=== PATIENT | female | born 1970 | race Caucasian/White ===

== ENCOUNTER 2020-04-13 08:45 | Inpatient (IN) ==
--- NOTE | 2019-12-03 07:18 | PAT Medication Instructions ---
Medication Instructions Date of Service December 03, 2019 Home Medications biotin 1 mg PO DAILY diphenhydramine HCl [Benadryl] 25 mg PO TID PRN glucos sul [id number] [Glucosamine Chondroitin] 1 cap PO DAILY ibuprofen 800 mg PO TID potassium gluconate 600 mg PO DAILY propranolol 80 mg PO BID ASK your surgeon for instructions ibuprofen 800 mg PO TID STOP taking 2 weeks before surgery (or as soon as possible if surgery is within 2 weeks) glucos sul [id number]-Mn [Glucosamine Chondroitin] 1 cap PO DAILY DO NOT take the morning of surgery biotin 1 mg PO DAILY diphenhydramine HCl [Benadryl] 25 mg PO TID PRN potassium gluconate 600 mg PO DAILY Take morning of surgery With a small sip of water, OTHERWISE NOTHING TO EAT OR DRINK AFTER MIDNIGHT: propranolol 80 mg PO BID Take evening before surgery diphenhydramine HCl [Benadryl] 25 mg PO TID PRN (if needed) propranolol 80 mg PO BID Other Notes If you have any questions please call us at [phone] or [phone] or [phone] or [phone]
--- NOTE | 2020-03-22 10:38 | Anesthesiology Consultation ---
Date of Service March 22, 2020 Assessment & Plan (1) Encounter for pre-operative examination: Per PAT assessment on 03/22: Travel screen- Lives in [place]. 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 No current COVID-19 related symptoms. Surgeon arranging preop COVID testing. Awaiting results. Chart Review Chart Review: Acceptable Risk for Surgery (pending COVID testing) and Patient seen in Pre Admission Testing Teaching & Discussion Pre-Anesthesia Teaching/Discussion Notes: Instructed NPO after midnight before s urgery,except medications with 15 cc of water. Medication instructions provided according to the PAT guidelines. History Surgery Operation Date: 04/13/20 07:00 Proposed Procedures p Right Total Knee Arthroplasty - Gregory Toure MD Height/Weight Height: 5 ft 10 in Weight: 120.6 kg Allergies Allergy/AdvReac Type Severity Reaction Status Date / Time latex Allergy Mild skin Verified 03/22/20 11:00 redness adhesive tape AdvReac Mild skin welts Verified 03/22/20 11:00 Medications Home Medications Medication Instructions Recorded Confirmed Last Taken biotin 1 mg PO DAILY 11/27/19 03/16/20 Unknown diphenhydramine HCl [Benadryl] 25 mg PO TID PRN 11/27/19 03/16/20 Unknown glucos sul [id number]-C-Mn 1 cap PO DAILY 11/27/19 03/16/20 Unknown [Glucosamine Chondroitin] ibuprofen 800 mg PO TID 11/27/19 03/16/20 Unknown potassium gluconate 600 mg PO DAILY 11/27/19 03/16/20 Unknown propranolol 80 mg PO BID 11/27/19 03/16/20 Unknown Past Medical History Medical History Benign essential tremor controlled on propranolol History of anxiety History of colitis Obesity Osteoarthritis Scoliosis mild Exercise / Class Metabolic Activity II 4-5 Yardwork/Stairs/Walk up hill Past Family History Family History Grandmother (Paternal) Family history of esophageal cancer Past Surgical History Surgical History History of arthroscopy RT KNEE History of bladder surgery BLADDER TACK History of esophagogastroduodenoscopy (EGD) History of gynecologic surgery D&E History of hysterectomy [place] teeth removed Past Anesthesia History No Hx of Anesthesia Complications and No Family Hx of Anesthesia Complications History of PONV No Hx of PONV and No Hx of Motion Sickness Social History Smoking Status: Never smoker Do You Dip or Chew Tobacco: No Hx Alcohol Use: Yes Alcohol type: beer alcohol intake frequency: a few times a week Hx Substance Use: No Review of Systems Patient denies chest pain, shortness of breath, dyspnea on exertion, fever, chills, cough, wheezing, palpitations. Physical Exam Vital Signs VITALS BP 101/61 P 64 TEMP 98.2 SP02 98%RA RESP 16 PHYSICAL Full neck and c-spine range of motion. Full TMJ range of motion. TMD 3 finger breaths Mallampati Score 1 Dentition: missing sides/molars Lungs: clear throughout to auscultation Cardiac: regular rate and rhythm, no murmurs noted Spine: normal Carotid arteries: negative bruit Extremities: no edema Testing Laboratory Results 03/22/20 11:00 03/22/20 11:00 PT 10.3 Seconds (9.0-12.0) 03/22/20 11:00 INR 1.0 (0.9-1.1) 03/22/20 11:00 APTT 28.0 Seconds (21.0-31.0) 03/22/20 11:00 Hemoglobin A1c 5.4 % (4.5-5.6) 03/22/20 11:00 Urine Color Yellow 03/22/20 11:00 Urine Appearance Clear (Clear) 03/22/20 11:00 Urine pH 5.0 (4.5-7.5) 03/22/20 11:00 Ur Specific [place] 1.012 (1.000-1.030) 03/22/20 11:00 Urine Protein Negative (Negative) 03/22/20 11:00 Urine Glucose (UA) Negative (Negative) 03/22/20 11:00 Urine Ketones Negative (Negative) 03/22/20 11:00 Urine Nitrite Negative (Negative) 03/22/20 11:00 Ur Leukocyte Esterase Negative (Negative) 03/22/20 11:00 Blood Type A Negative 03/22/20 11:00 Antibody Screen NEGATIVE 03/22/20 11:00 Electrocardiogram Date: 03/22/20 Findings: + NSR @ (62) Chest X-Ray Date: 03/22/20 Findings: + NAD
--- NOTE | 2020-03-22 11:28 | XRay Report ---
XR chest Pre-admission PA/Lat HISTORY: 49 years-old Female pat preoperative exam. No acute chest complaints COMPARISON: None TECHNIQUE: PA and lateral views of the chest FINDINGS: Cardiomediastinal and hilar silhouettes are within normal limits. No pneumothorax, pleural effusion, airspace consolidation or overt pulmonary edema. Degenerative changes of the shoulders and spine. Bon es appear grossly intact. IMPRESSION: No acute process. ACT 112: Negative or not required by law. The above report was generated using voice recognition software. It may contain grammatical, syntax o r spelling errors. Electronically signed by: Manny Castellano M.D. 03/22/2020 11:26 AM
[2020-03-22 13:11] LABS: Basophils # (auto) 0.02 K/uL (0-0.2); Basophils % (auto) 0.3 %; Eosinophils # (auto) 0.06 K/uL (0-0.5); Hemoglobin 13.9 g/dL (12.0-16.0); Lymphocytes # (auto) 2.07 K/uL (1.2-3.4); Lymphocytes % (auto) 34.8 %; Mean Corpuscular Hgb Conc 33.9 g/dL (32-36); Mean Corpuscular Volume 91.3 fL (80-100); Mean Platelet Volume 11.5 fL (7.4-10.4); Monocytes # (auto) 0.43 K/uL (0.11-0.59); Monocytes % (auto) 7.2 %; Neutrophils # (auto) 3.37 K/uL (1.4-6.5); Neutrophils % (auto) 56.7 %; Platelet Count 235 K/uL (130-400); RDW Coefficient of Variation 13.4 % (11.5-14.5); RDW Standard Deviation 44.5 fL (36.4-46.3); Red Blood Count 4.49 M/uL (4.2-5.4); White Blood Count 5.95 K/uL (4.8-10.8)
[2020-03-22 13:15] LABS: Appearance Urine Clear (Clear); Bilirubin Urine Negative (Negative); Blood Urine Negative (Negative); Color Urine Yellow; Glucose Urine UA Negative (Negative); Ketones Urine Negative (Negative); Leukocyte Esterase Urine Negative (Negative); Nitrite Urine Negative (Negative); Protein Urine Negative (Negative); Specific Gravity Urine 1.012 (1.000-1.030); Urobilinogen Urine Negative (Negative)
[2020-03-22 13:33] LABS: Prothrombin Time 10.3 Seconds (9.0-12.0)
[2020-03-22 13:36] LABS: Estimated Average Glucose 108 mg/dl; Hemoglobin A1C 5.4 % (4.5-5.6)
--- NOTE | 2020-03-22 13:43 | Electrocardiogram Report ---
Test Reason : Blood Pressure : / mmHG Vent. Rate : 062 BPM Atrial Rate : 062 BPM P-R Int : 182 ms QRS Dur : 102 ms QT Int : 440 ms P-R-T Axes : 049 065 021 degrees QTc Int : 446 ms Normal sinus rhythm Normal ECG No previous ECGs available Confirmed by Mauri Durand ([id number]) on 03/22/2020 1:42:41 PM Referred By: Gregory Toure Confirmed By:Mauri Durand
[2020-03-22 14:03] LABS: Albumin Level 3.7 gm/dl (3.4-5.0); BUN Creatinine Ratio 16.7 (10-20); Calcium 9.2 mg/dl (8.5-10.1); Creatinine Clr Calc Pharmacy 97.9 ml/min; Est GFR (African American) 78.9; Est GFR (Non-African American) 68.1; Potassium 4.2 mmol/L (3.5-5.1)
--- NOTE | 2020-04-12 19:21 | History and Physical Report ---
DATE OF ADMISSION: 04/13/2020 CHIEF COMPLAINT: Chronic right knee pain. HISTORY OF PRESENT ILLNESS: This is a 49-year-old female patient of Dr. Toure'george complaining of chronic right knee pain, longstanding, now progressively getting worse. The patient has failed conservative treatment including intraarticular injections, viscosupplementation, CBD oil, tramadol, home exercise program, the use of a sleeve and a brace. The patient has increased pain with weightbearing activities and her pain does interfere with her activities of daily living. The patient has been diagnosed with end-stage osteoarthritis per clinical and radiographic exams. The patient wished to proceed with a right total knee arthroplasty. PAST MEDICAL HISTORY: Essential tremor, osteoarthritis, obesity. SOCIAL HISTORY: Nonsmoker, occasional drinker. FAMILY HISTORY: Noncontributory. REVIEW OF SYSTEMS: Chronic right knee pain and instability. Otherwise, denies any shortness of breath, chest pain, nausea, vomiting or any other joint complaints. PAST SURGICAL HISTORY: [place] teeth, D and E, cystocele, hysterectomy, right knee arthroscopy. MEDICATIONS: 1. Diphenhydramine 25 mg 2 tablets every 4-6 hours as needed. 2. Tylenol Arthritis as needed. 3. Aleve as needed. 4. Biotin 10,000 mcg daily. 5. Ultram 50 mg as needed. 6. Ibuprofen as needed. 7. Propranolol 50 mg b.i.d. ALLERGIES: ADHESIVE AND LATEX. PHYSICAL EXAMINATION: GENERAL: Well-developed, well-nourished 49-year-old female in no acute distress. She is alert and oriented x3 and pleasant. HEENT: Normocephalic, atraumatic. Extraocular motions are intact. Pupils are equal and reactive to light. HEART: Regular rate and rhythm, no murmurs. LUNGS: Clear. ABDOMEN: Soft, nontender, bowel sounds present. EXTREMITIES: Right knee valgus deformity, positive effusion. Lateral joint line tenderness. Range of motion 0-110. Positive crepitation, 5/5 strength. Neurologically and neurovascularly, she is intact in her right lower extremity. DIAGNOSES: Right knee end-stage osteoarthritis, essential tremor, obesity. PLAN: The patient was advised of her diagnosis. Indications, risks, benefits, postop course have all been reviewed. The patient wished to proceed with a right total knee arthroplasty. Necessary consent forms, preoperative testing and clearances will be obtained.
[~2020-04-13 08:45] MED LIST: ACETAMINOPHEN 500 MG TAB PO SCH; BUPIVACAINE 0.25% 30 ML VIAL ONE; BUPIVACAINE 0.5 % 5 MG/1 ML PF 10ML VIAL ONE; CEFAZOLIN 3000MG 72.5 ML IV SCH; CeleBREX 200 MG CAP PO SCH; FAMOTIDINE 20 MG TAB PO SCH; GABAPENTIN 900 MG DOSE PO SCH; LR 500ML BOLUS, THEN 15ML/HR IV SCH; METOCLOPRAMIDE HCL 10 MG TABLET PO SCH; ROPIVACAINE 0.5% HCL/PF 150 MG, BUPIVACAINE 0.5% MPF 30 ML, EPINEPHrine 30MG/30ML (OR U... INFIL SCH; TRANEXAMIC ACID 1,000 MG **IV Intra-op IV SCH; TRANEXAMIC ACID 1,000 MG **IV Pre-op IV SCH; dexAMETHasone 4 MG TAB PO SCH
--- NOTE | 2020-04-13 09:20 | History & Physical Bridge Note ---
Date of Service April 13, 2020 History & Physical Bridge Note I have examined the patient, reviewed the History & Physical and in the interval since the performance of the History & Physical I have noted the following changes of clinical significance: no changes noted
[2020-04-13] MEDS ORDERED: LIDOCAINE HCL 2% 2 ML VIAL/AMP(20MG/ML) INFIL ONE (09:28)
[2020-04-13] MEDS ORDERED: PROPOFOL IV EMULSION 10 MG/ML 20 ML VIAL IV ONE ×3 (09:28→13:21)
[2020-04-13] MEDS ORDERED: MIDAZOLAM HCL 1 MG/ML 2ML VIAL ONE ×2 (09:28)
[2020-04-13] MEDS ORDERED: ONDANSETRON INJ 2 MG/ML 2 ML VIAL IV PRN ×2 (09:48→14:35)
[2020-04-13] MEDS ORDERED: BACITRACIN INJ 50,000 UNIT VIAL ONE (09:53)
[2020-04-13] MEDS ORDERED: ORTHO JOINT ANESTHETIC ONE (09:53)
--- NOTE | 2020-04-13 12:50 | Operative Report ---
Post Operative Report Pre & Post Diagnosis Operation Date: 04/13/20 11:10 Pre-Op Diagnosis: RIGHT KNEE OSTEOARTHRITIS, obesity BMI 37.8 Post-Op Diagnosis: RIGHT KNEE OSTEOARTHRITIS, obesity BMI 37.8 I identified the patient and participated in the time-out.: Yes Procedure Operation Date: 04/13/20 11:10 Actual Procedures p Right Total Knee Arthroplasty(Right), lateral release- Gregory Toure MD Surgeon Gregory Toure MD Tube Mill Operator MARQUIS Macario Estimated Blood Loss 15 Findings Consistent with Post-Op Diagnosis Specimens Bone cuts Drains 2 Hemovac Anesthesia Type MAC Spinal Regional Complications none Disposition Accompanied Patient To Recovery: No Disposition: Recovery Room Indications 49-year-old female with chronic progressive osteoarthritis in her right knee lateral compartment and patellofemoral joint. Patient is [id number] lateral compartment weightbearing films. Patient's obesity BMI 37.8 Description of Procedure Patient taken to the operating room placed supine on the operating table and anesthetized under spinal MAC regional anesthesia. Exam under anesthesia demonstrated 0 through 120 degrees range of motion mild MCL laxity and tight lateral compartment. A pneumatic tourniquet was placed about the obese thigh of the right lower extremity. The right lower extremity was prepped and draped in usual fashion. Leg was elevated exsanguinated with an Esmarch bandage and the pneumatic was raised to 350 mm mercury. An anterior incision was made across the right knee. The skin was incised longitudinally subcutaneous flaps were elevated and an incision was made through the medial retinaculum extending up into the mid third of the quadriceps tendon and extended down to the medial tibial tubercle. Intra-articular findings demonstrated lateral compartment and patellofemoral OA. Grade 3 OA patella grade 3-4 OA central trochlear groove. Lateral compartment grade 4 [id number]. Hypoplastic lateral femoral condyle. The knee was exposed by excising the infrapatellar fat pad, excising the meniscal remnants and anterior cruciate ligament. Any inflamed synovial tissue was resected. The fat pad over the anterior femur was resected for placement of the component in that area. The lateral synovial bands were release. Appropriate releases were performed to balance ligaments. The femur was exposed. The custom femoral cutting block was pinned in position. The distal femoral cutting block was applied. The distal femoral cut was made with the oscillating saw. The size 10 4-in-1 cutting block was placed. The anterior and posterior chamfer cuts were made. The knee was extended and a subperiosteal peel lateral release was performed around the patella. The patella width was measured and width was reproduced using freehand cut technique. The 32 x 8.5 millimeter symmetrical patella was used. 3 drill holes are made for the pegs. The tibia was exposed. A custom tibial cutting block was positioned and drill holes were made for the cutting guide. Cutting guide was placed and the proximal cut was made with the oscillating saw. All osteophytes were resected. The lamina labor relations supervisor was used to assess ligamentous balance and the ligaments were balanced in extension and flexion. This required lateral capsule release of the tibia IT band release off the tibia piecrust IT band lengthening release popliteus tendon. The tibia was reexposed and measured for a size E tibial component. This was externally rotated in line with the tibial tubercle and the fixation pins were drilled. The proximal tibia was fashioned with the drill and punch. The size 10 femoral trial was inserted. The trial MC inserts were used. The 11 MC mm insert gave balanced ligaments through full range of motion. The patella tracked with some medial liftoff so I performed a lateral release leaving the synovium intact and patella then tracked centrally. the trials were removed. The orthomix anesthetic cocktail was injected per protocol. The knee was then copiously irrigated with pulsatile lavage antibiotic solution with bacitracin. The final components were cemented with Simplex cement. The final components were 10 right narrow persona Toni [employer] CR femoral component, size E right tibial component, 11 mm MC tibial bearing polyethylene, 32 x 8.5 patella symmetrical. While the cement cured with the knee in full extension the Betadine soak was used per protocol. After the cement cured, the knee joint was copiously irrigated with antibiotic solution with bacitracin. 2 drains were brought out laterally and connected to a Hemovac. The quadriceps tendon and medial retinaculum were closed with interrupted [id number] #1 Vicryl sutures. The knee was taken through a full range of motion and repair was secure. The subcutaneous tissues were closed with 2-0 Vicryl sutures and skin was closed with arun. Sterile dressings were applied and the patient tolerated the procedure well. Bakari CHO my physician hair assistant, assisted in soft tissue retraction instrument management leg positioning the closure and will participate in the postoperative care of the patient. Was some increased difficulty due to obesity of the leg getting exposure during several portions of the procedure that did increase length of time the procedure and increased difficulty with procedure.. I attest to the content of the Intraoperative Record and any orders documented therein. Any exceptions are noted below.
--- NOTE | 2020-04-13 13:55 | XRay Report ---
RIGHT KNEE 2 VIEWS History: Right total knee arthroplasty. Degenerative arthritis. Postop. FINDINGS: The patient is status post a right total knee arthroplasty. The hardware is intact. No frac ture or dislocation. Skin arun and surgical drains are in place. IMPRESSION: Right total knee arthroplasty. No evidence for hardware complication. ACT 112: Negative or not required by law. Electronically signed by: French Orellana M.D. 04/13/2020 1:53 PM
[2020-04-13] MEDS ORDERED: MAGNESIUM HYDROXIDE SUSP 30 ML UDC PO PRN (14:30)
[2020-04-13] MEDS ORDERED: bisacodyL 10 MG SUPP PR PRN (14:31)
[2020-04-13] MEDS ORDERED: NALOXONE HCL 0.4 MG/1 ML VIAL/CARP IV PRN (14:35)
[2020-04-13] MEDS: SODIUM CHLORIDE 0.9% 1000ML 1,000 ML IV SCH ×2 (14:39→23:18)
--- NOTE | 2020-04-13 15:30 | Hospitalist Consultation ---
Date of Consultation April 13, 2020 Assessment & Plan (1) Status post right knee replacement: - POD#[address] Toure - activity and wound care orders as per ortho - pain control with bowel regimen - PT/OT - monitor H/H for acute blood loss anemia and transfuse blood products PRN - EBL 15 cc (2) Benign essential tremor: -Continue propanolol (3) DVT prophylaxis: -Aspirin 81 mg twice daily as per orthopedics Thank you for this consultation. We will follow the patient with you during their hospital stay. You can reach a member of the [facility] 25/03 via pager @ [phone]. Supervising Physician Co-Signing Physician Notes Pt seen and examined by me, care coordinated with JOSE E Khlail, please refer to her note above for further detail. Pt is a 49 y/o female with no significant pmh who is status post right total knee arthroplasty today. Postoperatively, the patient is doing well. She reports her pain is well controlled. No chest pain or shortness of breath. Denies abdominal pain and nausea. No lightheadedness or dizziness. Says her LE numbness is improving. She is able to move her toes w/o difficulty. Pt is currently laying in bed, in NAD. She is alert and oriented x3, answers questions appropriately. Lungs are clear to auscultation, no wheezing, rhonchi, crackles. Heart sounds regular. Abdomen soft, nontender, nondistended, + bowel sounds. Skin is warm, dry, well perfused. Moves upper extremities w/o difficulty. Surgical dressings applied, drain w/ serosang. fluid. Moves her toes w/o difficulty. Monitor VS. Monitor H&H for poss. blood loss anemia. Rosie Pritchett MD History of Present Illness Reason for Consultation: Postop medical management Requesting Physician: Dr. Toure Attending Physician: Gregory Toure MD History of Present Illness 49-year-old female with PMH essential tremor and other problems listed below who is status post right total knee arthroplasty today by Dr. Toure. Postoperatively, the patient is doing well. She reports her pain is well controlled. She reports some residual numbness to both the lower extremities. No chest pain or shortness of breath. Denies abdominal pain and nausea. No lightheadedness or dizziness. She has not voided some surgery. Allergies Allergy/AdvReac Type Severity Reaction Status Date / Time latex Allergy Mild skin Verified 04/13/20 09:12 redness adhesive tape AdvReac Mild skin welts Verified 04/13/20 09:12 Home Medications Home Medications Medication Instructions Recorded Confirmed Type biotin 1 mg PO DAILY 11/27/19 04/13/20 History diphenhydramine HCl [Benadryl] 25 mg PO TID PRN 11/27/19 04/13/20 History glucos sul [id number]-pst-nsskx-C-Mn 1 cap PO DAILY 11/27/19 04/13/20 History [Glucosamine Chondroitin] ibuprofen 800 mg PO TID 11/27/19 04/13/20 History potassium gluconate 600 mg PO DAILY 11/27/19 04/13/20 History propranolol 80 mg PO BID 11/27/19 04/13/20 History Patient History Medical History Benign essential tremor controlled on propranolol History of anxiety History of colitis Obesity Osteoarthritis Scoliosis mild Surgical History (Updated 04/13/20 @ 15:27 by JOSE E Khalil) History of arthroscopy RT KNEE History of bladder surgery BLADDER TACK History of esophagogastroduodenoscopy (EGD) History of gynecologic surgery D&E History of hysterectomy [place] teeth removed Family History Grandmother (Paternal) Family history of esophageal cancer Social History Smoking Status: Never smoker Second Hand Exposure: Yes ( A CHILD); Do You Dip or Chew Tobacco: No; Tobacco Cessation Education Requested by Patient: No Hx Alcohol Use: Yes Alcohol type: beer Hx Substance Use: No Preferred Language: Argentine [employer] Farmworker Required: No Beliefs That Will Affect Care: None Current Living Situation: Spouse Feels Safe at Home: Yes Safety Concerns: Feels Safe At This Time Review of Systems Review of Systems: ROS per HPI, all other systems reviewed and negative Physical Exam Constitutional: WD/WN, vitals as above Eyes: PERRL, conjunctivae normal, anicteric sclerae ENMT: external ear and nose normal, oropharynx normal Respiratory: normal respiratory effort, lungs clear to auscultation Cardiovascular: Rate/Rhythm: regular rate and regular rhythm Vessels: normal peripheral pulses Extremities: no edema Gastrointestinal (Abdomen): normal bowel sounds, soft, nontender, no hepatosplenomegaly Musculoskeletal: S/p right knee surgery, surgical dressing dry and intact, drain in place draining bloody drainage, BLLE remain numb, circulation intact Skin: no rashes, warm and dry Neurologic: PERRL, EOMI, accommodation nl, no face palsy, no dysarthria Psychiatric: A+Ox3, euthymic affect Results & Data Results & Data ([facility]) Vital Signs (Past 12 Hours) Vital Signs Temp Pulse Pulse Resp BP Pulse Ox 04/13/20 15:02 36.5 C 63 18 106/72 94 04/13/20 14:40 36.4 C L 67 17 121/73 94 04/13/20 14:05 36.6 C 66 16 101/70 95 04/13/20 13:50 36.8 C 64 16 118/67 95 04/13/20 13:40 61 16 111/74 95 04/13/20 13:30 71 16 109/65 97 04/13/20 13:20 67 16 109/61 98 04/13/20 13:14 37.1 C 70 16 102/59 L 96 04/13/20 09:16 36.6 C 62 20 139/82 96
--- NOTE | 2020-04-13 16:31 | Anesthesiology Progress Note ---
Date of Service April 13, 2020 Anesthesia Post Procedure Vital Signs Vital Signs: Temp Pulse Pulse Resp BP Pulse Ox 04/13/20 16:00 36.4 C L 62 18 104/70 95 04/13/20 15:02 36.5 C 63 18 106/72 94 04/13/20 14:40 36.4 C L 67 17 121/73 94 04/13/20 14:05 36.6 C 66 16 101/70 95 04/13/20 13:50 36.8 C 64 16 118/67 95 04/13/20 13:40 61 16 111/74 95 04/13/20 13:30 71 16 109/65 97 04/13/20 13:20 67 16 109/61 98 04/13/20 13:14 37.1 C 70 16 102/59 L 96 04/13/20 09:16 36.6 C 62 20 139/82 96 Transfer of Care Handoff Completed per policy Notes Mental Status: alert / awake / arousable and participated in evaluation Patient Amnestic to Procedure: Yes Nausea / Vomiting: adequately controlled Pain: adequately controlled Airway Patency, RR, SpO2: stable & adequate BP & HR: stable & adequate Hydration State: stable & adequate Neuraxial Anesthesia: was administered and sensory block is resolving Anesthetic Complications: no major complications apparent and Pt Satisfied with anesthetic care
[2020-04-13] MEDS: HYDROCODONE/ACETAMOPHEN 5/325MG TAB PO PRN (19:20)
[2020-04-13] MEDS: CEFAZOLIN 2000MG 2,000 MG/15 ML SYR IV SCH (19:20)
[2020-04-13] MEDS: ASPIRIN 81 MG ECTAB PO SCH (20:46)
[2020-04-13] MEDS: DOCUSATE SODIUM 100 MG CAP PO SCH (20:46)
[2020-04-13] MEDS: CeleBREX 200 MG CAP PO SCH (20:46)
[2020-04-13] MEDS: SENNA 8.6 MG TAB PO SCH (20:47)
[2020-04-13] MEDS ORDERED: PROPRANOLOL HCL 80 MG TAB PO SCH (21:00)
[2020-04-13] MEDS: HYDROmorphone INJ 0.5 MG/0.5 ML SYR IV PRN (22:15)
[2020-04-14] MEDS: CEFAZOLIN 2000MG 2,000 MG/15 ML SYR IV SCH (02:18)
[2020-04-14] MEDS: HYDROCODONE/ACETAMOPHEN 5/325MG TAB PO PRN ×3 (02:18→19:00)
[2020-04-14 05:52] LABS: Hematocrit (blood only) 35.2 % (37-47); Hemoglobin 12.1 g/dL (12.0-16.0); Mean Corpuscular Hemoglobin 30.6 pg (25-34); Mean Corpuscular Hgb Conc 34.4 g/dL (32-36); Mean Corpuscular Volume 89.1 fL (80-100); Mean Platelet Volume 10.5 fL (7.4-10.4); Platelet Count 237 K/uL (130-400); RDW Coefficient of Variation 13.4 % (11.5-14.5); RDW Standard Deviation 44.1 fL (36.4-46.3); Red Blood Count 3.95 M/uL (4.2-5.4); White Blood Count 18.25 K/uL (4.8-10.8)
[2020-04-14 06:24] LABS: BUN Creatinine Ratio 17.1 (10-20); Calcium 7.9 mg/dl (8.5-10.1); Creatinine Clr Calc Pharmacy 112.4 ml/min; Est GFR (African American) 93.9; Potassium 3.7 mmol/L (3.5-5.1)
[2020-04-14] MEDS: HYDROmorphone INJ 0.5 MG/0.5 ML SYR IV PRN ×3 (07:24→21:08)
[2020-04-14] MEDS: DOCUSATE SODIUM 100 MG CAP PO SCH ×2 (08:12→21:03)
[2020-04-14] MEDS: PROPRANOLOL HCL 20 MG TAB PO SCH ×2 (08:12→21:02)
[2020-04-14] MEDS: ASPIRIN 81 MG ECTAB PO SCH ×2 (08:12→21:03)
[2020-04-14] MEDS: CeleBREX 200 MG CAP PO SCH ×2 (08:12→21:02)
[2020-04-14] MEDS: POTASSIUM CHLORIDE 10 MEQ TABCR PO SCH (08:13)
[2020-04-14] MEDS: MULTIVITAMIN TAB PO SCH (08:13)
--- NOTE | 2020-04-14 08:57 | Hospitalist Progress Note ---
Date of Service April 14, 2020 Assessment & Plan (1) Status post right knee replacement: POD#[address] Tejal SINGER# 15ml Total hemovac drain output #560ml - activity and wound care orders as per ortho - pain control with bowel regimen - PT/OT - Hgb: 12. Was 13.9 Pre-op. Continue to monitor H/H (2) Benign essential tremor: -Continue propranolol (3) DVT prophylaxis: -Aspirin 81 mg twice daily as per orthopedics Disposition per primary service Pt was seen and care coordinated with Dr Pritchett. See addendum Thank you for this consultation. We will follow the patient with you during their hospital stay. You can reach a [facility] via pager @ [phone]. Admission and Anticipated Discharge Date Admission Date: April 13, 2020 Supervising Physician Co-Signing Physician Notes Pt seen and examined by me, care coordinated with Paula ANDRADE, please refer to her note above for further detail. Pt is a 49 y/o female with no significant pmh who is status post right total knee arthroplasty. No acute events overnight except for difficulty w/ sleeping. She has been ambulating in hallways today. No chest pain or shortness of breath. Denies abdominal pain and nausea. No lightheadedness or dizziness. Says her LE numbness has resolved. She is able to move her toes and bend her knees w/o difficulty. Pt is currently sitting up in bed, in NAD. She is alert and oriented x3, answers questions appropriately. Lungs are clear to auscultation, no wheezing, rhonchi, crackles. Heart sounds regular. Abdomen soft, nontender, nondistended, + bowel sounds. Skin is warm, dry, well perfused. Moves upper extremities w/o difficulty. Surgical dressings applied, drain w/ serosang. fluid. Moves her toes and bends knees w/o difficulty. No sensory loss noted. Monitor VS. Monitor H&H for poss. blood loss anemia. WBC elevated this AM likely d/t surgery, currently no signs of infection. Will order melatonin to help w/ sleep. Rosie Pritchett MD Subjective Pt seen and examined sitting in bedside chair. POD #1 S/P Right TKA. Pain controlled with pain medication. Denies paresthesias. Eating and drinking well. Urinating without difficulty or dysuria. +flatus, no BM yet. Denies fever/chills, diaphoresis, N/V, NEVIL[place], dizziness, CP, SOB, cough, sore throat, choking, abdominal pain, weakness, rashes. Review of Systems Review of Systems: All systems reviewed & are unremarkable except as noted in HPI & below Physical Exam Physical Exam: General: no distress, overweight Head: normocephalic, atraumatic Eyes: conjunctiva non-injected, anicteric ENT: normal inspection external ears, nose, mucous membranes moist Neck: supple, trachea midline Lungs: clear, no respiratory distress, no wheezing/rhonchi/rales CV: RRR, no murmur, no significant pretibial edema Abd: normal BS, soft, non-tender Ext: Right leg with domi wrap and surgical dressing in place, Hemovac in place with serosanguineous drainage, no calf tenderness, sensation to light touch intact, distal pulses intact Neuro: A&O x 3, no focal deficits noted, normal affect Skin: warm, dry Results & Data Results & Data ([facility]) Vital Signs (Past 12 Hours) Vital Signs Temp Pulse Resp BP Pulse Ox 04/14/20 07:38 36.9 C 67 16 124/82 96 04/14/20 03:33 36.6 C 72 18 121/72 95 04/13/20 23:00 36.7 C 63 20 135/72 95 Laboratory Results Short CBC 04/14/20 Range/Units 05:12 WBC 18.25 H (4.8-10.8) K/uL Hgb 12.1 (12.0-16.0) g/dL Hct 35.2 L (37-47) % Plt Count 237 (130-400) K/uL BMP 04/14/20 05:12 Sodium 141 Potassium 3.7 Chloride 110 H Carbon Dioxide 24 BUN 14 Creatinine 0.84 Glucose 119 H Calcium 7.9 L
[2020-04-14] MEDS ORDERED: NON-FORMULARY MEDICATION (Biotin 1 MG) PO SCH (09:00)
[2020-04-14] MEDS ORDERED: NON-FORMULARY MEDICATION (Potassium Gluconate 600 MG) PO SCH (09:00)
--- NOTE | 2020-04-14 09:34 | Orthopedic Progress Note ---
Date of Service April 14, 2020 Assessment & Plan (1) Status post right knee replacement: POD #1, Right TKA PT/OT DVT proph- ASA D/C planning- Home w HH Pain control today. Admission and Anticipated Discharge Date Admission Date: April 13, 2020 Subjective POD #1, Feeling well. Denies SOB, CP, N/V, dizziness Pain is main issue, has gotten worse overnight. Plans to discharge with HH when stable. Physical Exam Physical Exam: Right knee dressings/ drain c/d/i, no drainage. Toes/ ankle mobile. No calf tenderness. A&Ox3, appropriate. Results & Data ([facility]) Vital Signs (Past 12 Hours) Vital Signs Temp Pulse Resp BP Pulse Ox 04/14/20 07:38 36.9 C 67 16 124/82 96 04/14/20 03:33 36.6 C 72 18 121/72 95 04/13/20 23:00 36.7 C 63 20 135/72 95
[2020-04-14] MEDS: SACCHAROMYCES BOULARDII 250 MG CAP PO SCH (12:19)
[2020-04-14] MEDS ORDERED: MELATONIN 3 MG TAB PO SCH (21:00)
[2020-04-14] MEDS: SENNA 8.6 MG TAB PO SCH (21:02)
[2020-04-15] MEDS: HYDROCODONE/ACETAMOPHEN 5/325MG TAB PO PRN ×3 (03:33→11:33)
[2020-04-15 06:04] LABS: Hematocrit (blood only) 31.7 % (37-47); Hemoglobin 10.8 g/dL (12.0-16.0); Mean Corpuscular Hemoglobin 30.8 pg (25-34); Mean Corpuscular Hgb Conc 34.1 g/dL (32-36); Mean Corpuscular Volume 90.3 fL (80-100); Mean Platelet Volume 10.4 fL (7.4-10.4); Platelet Count 225 K/uL (130-400); RDW Coefficient of Variation 13.8 % (11.5-14.5); RDW Standard Deviation 45.4 fL (36.4-46.3); Red Blood Count 3.51 M/uL (4.2-5.4); White Blood Count 10.04 K/uL (4.8-10.8)
[2020-04-15 06:37] LABS: BUN Creatinine Ratio 16.4 (10-20); Calcium 8.7 mg/dl (8.5-10.1); Creatinine Clr Calc Pharmacy 87.5 ml/min; Est GFR (African American) 69.3; Est GFR (Non-African American) 59.8; Potassium 3.4 mmol/L (3.5-5.1)
[2020-04-15] MEDS: CeleBREX 200 MG CAP PO SCH (07:44)
[2020-04-15] MEDS: ASPIRIN 81 MG ECTAB PO SCH (07:45)
[2020-04-15] MEDS: SACCHAROMYCES BOULARDII 250 MG CAP PO SCH (07:45)
[2020-04-15] MEDS: DOCUSATE SODIUM 100 MG CAP PO SCH (07:45)
[2020-04-15] MEDS: PROPRANOLOL HCL 20 MG TAB PO SCH (07:46)
[2020-04-15] MEDS: MULTIVITAMIN TAB PO SCH (07:46)
[2020-04-15] MEDS: POTASSIUM CHLORIDE 10 MEQ TABCR PO SCH (07:46)
--- NOTE | 2020-04-15 08:25 | Orthopedic Progress Note ---
Date of Service April 15, 2020 Assessment & Plan (1) Status post right knee replacement: POD #2, Right TKA Mild hypokalemia-we will discuss with medicine service. Plan for follow-up [facility] as an outpatient PT/OT DVT proph- ASA D/C planning- Home w HH Pain control today. Admission and Anticipated Discharge Date Admission Date: April 13, 2020 Subjective Postop day 2 Patient currently sitting up in bed. Awake and alert. No complaints this morning. Denies shortness of breath, chest pain, lightheadedness. Physical Exam Physical Exam: Silverlon dressing is clean, dry, and intact. Minimal drainage noted in the dressing window. Calves are soft and nontender. Neurovascular is intact. Toes are mobile. Results & Data ([facility]) Vital Signs (Past 12 Hours) Vital Signs Temp Pulse Resp BP Pulse Ox 04/15/20 06:10 36.7 C 65 16 102/66 96 04/14/20 23:35 36.5 C 70 16 104/63 96 04/14/20 21:00 62 135/82 Laboratory Results Laboratory Results WBC 10.04 K/uL (4.8-10.8) 04/15/20 05:49 RBC 3.51 M/uL (4.2-5.4) L 04/15/20 05:49 Hgb 10.8 g/dL (12.0-16.0) L 04/15/20 05:49 Hct 31.7 % (37-47) L 04/15/20 05:49 MCV 90.3 fL (80-100) 04/15/20 05:49 MCH 30.8 pg (25-34) 04/15/20 05:49 MCHC 34.1 g/dL (32-36) 04/15/20 05:49 RDW Std Deviation 45.4 fL (36.4-46.3) 04/15/20 05:49 RDW Coeff of Joanie 13.8 % (11.5-14.5) 04/15/20 05:49 Plt Count 225 K/uL (130-400) 04/15/20 05:49 MPV 10.4 fL (7.4-10.4) 04/15/20 05:49 Immature Gran % (Auto) 0.0 % 03/22/20 11:00 Neut % (Auto) 56.7 % 03/22/20 11:00 Lymph % (Auto) 34.8 % 03/22/20 11:00 [place] % (Auto) 7.2 % 03/22/20 11:00 Eos % (Auto) 1.0 % 03/22/20 11:00 Baso % (Auto) 0.3 % 03/22/20 11:00 Neut # (Auto) 3.37 K/uL (1.4-6.5) 03/22/20 11:00 Lymph # (Auto) 2.07 K/uL (1.2-3.4) 03/22/20 11:00 [place] # (Auto) 0.43 K/uL (0.11-0.59) 03/22/20 11:00 Eos # (Auto) 0.06 K/uL (0-0.5) 03/22/20 11:00 Baso # (Auto) 0.02 K/uL (0-0.2) 03/22/20 11:00 Immature Gran # (Auto) 0.00 K/uL (0.00-0.02) 03/22/20 11:00 PT 10.3 Seconds (9.0-12.0) 03/22/20 11:00 INR 1.0 (0.9-1.1) 03/22/20 11:00 APTT 28.0 Seconds (21.0-31.0) 03/22/20 11:00 PTT Ratio 1.0 03/22/20 11:00 Sodium 141 mmol/L (136-145) 04/15/20 05:49 Potassium 3.4 mmol/L (3.5-5.1) L 04/15/20 05:49 Chloride 110 mmol/L (98-107) H 04/15/20 05:49 Carbon Dioxide 25 mmol/L (21-32) 04/15/20 05:49 Anion Gap 6.0 (3-11) 04/15/20 05:49 BUN 18 mg/dl (7-18) 04/15/20 05:49 Creatinine 1.08 mg/dl (0.6-1.2) 04/15/20 05:49 Est Cr Clr Drug Dosing 87.5 ml/min 04/15/20 05:49 Est GFR ( Amer) 69.3 04/15/20 05:49 Est GFR (Non-Af Amer) 59.8 04/15/20 05:49 BUN/Creatinine Ratio 16.4 (10-20) 04/15/20 05:49 Glucose 100 mg/dl (70-99) H 04/15/20 05:49 Estimat Average Glucose 108 mg/dl 03/22/20 11:00 Hemoglobin A1c 5.4 % (4.5-5.6) 03/22/20 11:00 Calcium 8.7 mg/dl (8.5-10.1) 04/15/20 05:49 Albumin 3.7 gm/dl (3.4-5.0) 03/22/20 11:00 Urine Color Yellow 03/22/20 11:00 Urine Appearance Clear (Clear) 03/22/20 11:00 Urine pH 5.0 (4.5-7.5) 03/22/20 11:00 Ur Specific [place] 1.012 (1.000-1.030) 03/22/20 11:00 Urine Protein Negative (Negative) 03/22/20 11:00 Urine Glucose (UA) Negative (Negative) 03/22/20 11:00 Urine Ketones Negative (Negative) 03/22/20 11:00 Urine Blood Negative (Negative) 03/22/20 11:00 Urine Nitrite Negative (Negative) 03/22/20 11:00 Urine Bilirubin Negative (Negative) 03/22/20 11:00 Urine Urobilinogen Negative (Negative) 03/22/20 11:00 Ur Leukocyte Esterase Negative (Negative) 03/22/20 11:00 Blood Type A Negative 03/22/20 11:00 Antibody Screen NEGATIVE 03/22/20 11:00
[2020-04-15] MEDS ORDERED: POTASSIUM CHLORIDE 20 MEQ TABCR PO ONE (09:00)
--- NOTE | 2020-04-15 09:26 | Hospitalist Progress Note ---
Date of Service April 15, 2020 Assessment & Plan (1) Status post right knee replacement: POD# 2 S/P right TKA by Dr. Tejal SINGER# 15ml 24 hour hemovac drain output #455ml - Hemovac removed by ortho today - activity and wound care orders as per ortho - pain control with bowel regimen - PT/OT - Hgb: 10.8 from 12 yesterday. (2) Hypokalemia: K: 3.4 -Replace today -Continue home supplements -BMP outpatient in a few days (3) Benign essential tremor: -Continue propranolol (4) DVT prophylaxis: -Aspirin 81 mg twice daily as per orthopedics Disposition per primary service - Planned discharge home today Pt care coordinated with Dr Pritchett. See addendum Thank you for this consultation. We will follow the patient with you during their hospital stay. You [facility] via pager @ [phone]. Admission and Anticipated Discharge Date Admission Date: April 13, 2020 Supervising Physician Co-Signing Physician Notes Pt seen and examined by me, care coordinated with Paula Luong PA-C, please refer to her note above for further detail. Pt is a 49 y/o female with no significant pmh who is status post right total knee arthroplasty. No acute events overnight. Hemovac removed by Ortho today. No chest pain or shortness of breath. Denies abdominal pain and nausea. No lightheadedness or dizziness. Says her LE numbness has resolved. She is able to move her toes and bend her knees w/o difficulty. Plan for discharge by Ortho today. Pt is currently sitting up in bed, in NAD. She is alert and oriented x3, answers questions appropriately. Lungs are clear to auscultation, no wheezing, rhonchi, crackles. Heart sounds regular. Abdomen soft, nontender, nondistended, + bowel sounds. Skin is warm, dry, well perfused. Moves all four extremities w/o diffi culty. No sensory loss noted. Mild post -op blood loss anemia noted. WBC normalized. K 3.4 today, replaced, pt takes potassium supplement at home which she will continue, and she will follow- up with her PCP. Rosie Pritchett MD Subjective Pt seen and examined, ambulating in room. Doing well post op. Denies N/V, dizziness, syncope, CP, SOB. Urinating without difficulty or dysuria. Had BM yesterday. Denies fever/chills, NEVIL[place], abdominal pain, extremity weakness, extremity edema, rashes. Review of Systems Review of Systems: All systems reviewed & are unremarkable except as noted in HPI & below Physical Exam Physical Exam: General: no distress, overweight Head: normocephalic, atraumatic Eyes: conjunctiva non-injected, anicteric ENT: normal inspection external ears, nose, mucous membranes moist Neck: supple, trachea midline Lungs: clear, no respiratory distress, no wheezing/rhonchi/rales CV: RRR, no murmur, no significant pretibial edema Abd: normal BS, soft, non-tender Ext: Right knee with surgical dressing in place; no calf tenderness, sensation to light touch intact, distal pulses intact Neuro: A&O x 3, no focal deficits noted, normal affect Skin: warm, dry Results & Data Results & Data ([facility]) Vital Signs (Past 12 Hours) Vital Signs Temp Pulse Resp BP Pulse Ox 04/15/20 08:25 36.7 C 65 16 102/66 96 04/15/20 06:10 36.7 C 65 16 102/66 96 04/14/20 23:35 36.5 C 70 16 104/63 96 Laboratory Results Short CBC 04/15/20 Range/Units 05:49 WBC 10.04 (4.8-10.8) K/uL Hgb 10.8 L (12.0-16.0) g/dL Hct 31.7 L (37-47) % Plt Count 225 (130-400) K/uL BMP 04/15/20 05:49 Sodium 141 Potassium 3.4 L Chloride 110 H Carbon Dioxide 25 BUN 18 Creatinine 1.08 Glucose 100 H Calcium 8.7
--- NOTE | 2020-04-27 02:39 | Discharge Summary (DS) ---
HISTORY OF PRESENT ILLNESS: This is a 49-year-old female patient of Dr. Toure'george complaining of chronic right knee pain, longstanding, now progressively getting worse. The patient failed conservative treatment and elected to proceed with a right total knee arthroplasty. PAST MEDICAL HISTORY: Essential tremor, osteoarthritis and obesity. POSTOPERATIVE COURSE: The patient underwent a right total knee arthroplasty on 04/13/2020. She was followed closely with physical therapy, pain control, medical consultation and DVT prophylaxis in the form of aspirin. The patient did have a slight increase in her potassium on postoperative day #2. She was given 40 mEq of potassium once and will follow up with her PCP in 3 days for a basic metabolic panel. Otherwise, an uneventful postoperative course. PHYSICAL EXAMINATION: On discharge, right knee Silverlon dressing was clean, dry and intact. There was no redness or drainage, no calf tenderness. Negative Homans sign. Toes and ankle were mobile. Neurologically and neurovascularly intact right lower extremity. DIAGNOSES: Right knee end-stage osteoarthritis, postoperative hypokalemia very mild, essential tremor, osteoarthritis and obesity. PLAN: The patient was discharged home with home health services. She will continue her preadmission medications with the addition of aspirin for DVT prophylaxis and pain medication. The patient will follow up as an outpatient as scheduled.
== END 2020-04-15 12:39 | disposition home health service (06) | DRG 470 ==
LOC: ASU 08:45 → 3E 13:22